=== PATIENT | male | born 1940 | race Caucasian/White ===

== ENCOUNTER 2022-02-26 12:05 | Inpatient (IN) | payer OTHER ==
[~2022-02-26] VITALS: Ht 172.7 cm; Wt 86.2 kg
[2022-02-26 12:05] VITALS: BP_SYST 125
[2022-02-26] MEDS ORDERED: OLAN5TAB71 PO (13:41)
[2022-02-26] MEDS ORDERED: IRBE300T40 PO (13:41)
[2022-02-26] MEDS ORDERED: ROSU20TA2 PO (13:41)
[2022-02-26] MEDS ORDERED: TAMS-11 PO (13:41)
[2022-02-26] MEDS ORDERED: NITR0.4T47 SL (13:41)
[2022-02-26] MEDS ORDERED: LACT10SO6 PO (13:41)
[2022-02-26] MEDS ORDERED: ASPI-1155 PO (13:41)
[2022-02-26 13:55] LABS: ANION GAP 5 (5-15); CALCIUM 8.6 mg/dL (8.4-11.0); CHLORIDE 103 mmol/L (98-107); CREATININE 1.01 mg/dL (0.55-1.30); GLUCOSE 137 mg/dL (70-99); UREA NITROGEN, BLOOD 9 mg/dL (8-21)
[2022-02-26 13:57] LABS: BILIRUBIN,URINE NEGATIVE (NEGATIVE); BLOOD, URINE 3+ (NEGATIVE); COLOR,URINE YELLOW (YELLOW); GLUCOSE,URINE TRACE (NEGATIVE); KETONES,URINE NEGATIVE (NEGATIVE); LEUKOCYTE ESTERASE ,URINE 3+ (NEGATIVE); NITRITE, URINE POSITIVE (NEGATIVE); PROTEIN URINE 2+ (NEGATIVE); UROBILINOGEN,URINE 0.2 (0.2-1.0)
[2022-02-26 14:00] LABS: CLARITY/URINE HAZY (CLEAR)
[2022-02-26 14:00] LABS: BASOPHILS % (AUTO) 0.5 % (0.0-2.0); EOSINOPHILS # (AUTO) 0.1 K/uL (0.0-0.4); EOSINOPHILS % (AUTO) 0.9 % (0.0-4.0); HEMATOCRIT 36.3 % (36-54); HEMOGLOBIN 12.2 g/dL (14.0-18.0); LYMPHOCYTES # (AUTO) 0.7 K/uL (1.0-5.5); LYMPHOCYTES % (AUTO) 9.3 % (20.5-51.5); MEAN CORPUSCULAR HEMOGLOBIN 28 pg (27-31); MEAN CORPUSCULAR HGB CONC 34 % (32-36); MEAN CORPUSCULAR VOLUME 83 fL (79.0-98.0); MONOCYTES # (AUTO) 0.4 K/uL (0.0-1.0); MONOCYTES % (AUTO) 4.5 % (1.7-9.3); NEUTROPHILS # (AUTO) 6.6 K/uL (1.8-7.7); NEUTROPHILS % (AUTO) 84.8 % (40.0-70.0); PLATELET COUNT (AUTO) 179 K/uL (130-430); RED BLOOD CELL COUNT(AUTO) 4.39 MIL/uL (4.2-6.2); RED CELL DISTRIBUTION WIDTH 13.9 % (9.0-15.0); WHITE BLOOD COUNT (AUTO) 7.8 K/uL (4.8-10.8)
[2022-02-26 14:09] LABS: BACTERIA,URINE MANY /HPF (None Seen); RBC,URINE 20-50 /HPF (0-3); WBC,URINE 50-80 /HPF (0-3)
[2022-02-26 14:10] LABS: YEAST,URINE Many /HPF (None Seen)
[2022-02-26 14:12] LABS: ALANINE AMINOTRANSFERASE 35 U/L (12-78); ASPARTATE AMINOTRANSFERASE 25 U/L (10-37); LIPASE 115 U/L (73-393); PHOSPHORUS 3.5 mg/dL (2.7-4.5); TOTAL BILIRUBIN 0.4 mg/dL (0.0-1.0)
[2022-02-26] MEDS ORDERED: cefTRIAXone 1 GM in D5W 50 ML IV ONE (14:30)
[2022-02-26] MEDS ORDERED: cefTRIAXone 1 GM VIAL ONE ×2 (14:44→14:45)
[2022-02-26 17:15] VITALS: BP_SYST 150
[2022-02-26 20:00] VITALS: BP_SYST 147
[2022-02-26] MEDS ORDERED: D5W 1,000 ML IV PRN (22:00)
[2022-02-26] MEDS ORDERED: INSULIN REGULAR, HUMAN 100 UNITS/ML, 3 ML VIAL (humuLIN R) SUBCUT PRN (22:00)
[2022-02-26] MEDS ORDERED: DEXTROSE 50% JECT 50 ML DISP.SYRIN IVP PRN (22:00)
[2022-02-26] MEDS ORDERED: GLUCOSE (DEXTROSE) ORAL GEL -Adults PO PRN (22:00)
[2022-02-27] VITALS: BP_SYST 145
[2022-02-27 06:22] LABS: BASOPHILS % (AUTO) 0.6 % (0.0-2.0); EOSINOPHILS # (AUTO) 0.1 K/uL (0.0-0.4); EOSINOPHILS % (AUTO) 2.4 % (0.0-4.0); HEMATOCRIT 34.1 % (36-54); HEMOGLOBIN 11.4 g/dL (14.0-18.0); LYMPHOCYTES # (AUTO) 1.2 K/uL (1.0-5.5); LYMPHOCYTES % (AUTO) 21.9 % (20.5-51.5); MEAN CORPUSCULAR HEMOGLOBIN 27 pg (27-31); MEAN CORPUSCULAR HGB CONC 33 % (32-36); MEAN CORPUSCULAR VOLUME 82 fL (79.0-98.0); MONOCYTES # (AUTO) 0.4 K/uL (0.0-1.0); MONOCYTES % (AUTO) 6.6 % (1.7-9.3); NEUTROPHILS # (AUTO) 3.7 K/uL (1.8-7.7); NEUTROPHILS % (AUTO) 68.5 % (40.0-70.0); PLATELET COUNT (AUTO) 187 K/uL (130-430); RED BLOOD CELL COUNT(AUTO) 4.16 MIL/uL (4.2-6.2); RED CELL DISTRIBUTION WIDTH 13.9 % (9.0-15.0); WHITE BLOOD COUNT (AUTO) 5.4 K/uL (4.8-10.8)
[2022-02-27 06:56] LABS: ALANINE AMINOTRANSFERASE 38 U/L (12-78); ALBUMIN 2.8 g/dL (3.4-4.8); ANION GAP 8 (5-15); ASPARTATE AMINOTRANSFERASE 27 U/L (10-37); CALCIUM 8.7 mg/dL (8.4-11.0); CHLORIDE 105 mmol/L (98-107); CREATININE 0.94 mg/dL (0.55-1.30); GLUCOSE 114 mg/dL (70-99); TOTAL BILIRUBIN 0.4 mg/dL (0.0-1.0); UREA NITROGEN, BLOOD 8 mg/dL (8-21)
[2022-02-27 07:53] VITALS: BP_SYST 141
[2022-02-27] MEDS: OLANZapine 5 MG TABLET PO SCH (08:41)
[2022-02-27] MEDS: ASPIRIN 81 MG TAB.CHEW PO SCH (08:41)
[2022-02-27] MEDS: LOSARTAN POTASSIUM 50 MG TABLET (COZAAR) PO SCH (08:41)
[2022-02-27] MEDS: TAMSULOSIN HCL 0.4 MG CAP PO SCH (08:41)
[2022-02-27] MEDS ORDERED: THEOPHYLLINE ANHYDROUS 200 MG TAB.SR.12H PO ONE (10:30)
[2022-02-27 12:00] VITALS: BP_SYST 140
[2022-02-27] MEDS: cefTRIAXone 1 GM IVPB PREMIX 50 ML IV SCH (15:22)
[2022-02-27 16:00] VITALS: BP_SYST 90
[2022-02-27 19:00] VITALS: BP_SYST 121
[2022-02-27 20:00] VITALS: BP_SYST 121
[2022-02-27] MEDS: THEOPHYLLINE ANHYDROUS 200 MG TAB.SR.12H PO SCH (22:21)
[2022-02-27] MEDS: ATORVASTATIN 20 MG TABLET PO SCH (22:24)
[2022-02-28] VITALS: BP_SYST 119
[2022-02-28 08:00] VITALS: BP_SYST 130
[2022-02-28] MEDS: ASPIRIN 81 MG TAB.CHEW PO SCH (10:07)
[2022-02-28] MEDS: TAMSULOSIN HCL 0.4 MG CAP PO SCH (10:07)
[2022-02-28] MEDS: OLANZapine 5 MG TABLET PO SCH (10:07)
[2022-02-28] MEDS: THEOPHYLLINE ANHYDROUS 200 MG TAB.SR.12H PO SCH ×2 (10:07→20:24)
[2022-02-28] MEDS: LOSARTAN POTASSIUM 50 MG TABLET (COZAAR) PO SCH (10:08)
[2022-02-28 12:00] VITALS: BP_SYST 103
[2022-02-28] MEDS: cefTRIAXone 1 GM IVPB PREMIX 50 ML IV SCH (14:29)
[2022-02-28 17:00] VITALS: BP_SYST 97
[2022-02-28 20:00] VITALS: BP_SYST 78
[2022-02-28] MEDS ORDERED: NACL 0.9% 1,000 ML IV ONE (20:15)
[2022-02-28] MEDS: ATORVASTATIN 20 MG TABLET PO SCH (20:23)
[2022-02-28 21:43] VITALS: BP_SYST 92
[2022-03-01] VITALS: BP_SYST 113
[2022-03-01 08:00] VITALS: BP_SYST 112
[2022-03-01] MEDS: LOSARTAN POTASSIUM 50 MG TABLET (COZAAR) PO SCH (10:38)
[2022-03-01] MEDS: OLANZapine 5 MG TABLET PO SCH (10:38)
[2022-03-01] MEDS: TAMSULOSIN HCL 0.4 MG CAP PO SCH (10:38)
[2022-03-01] MEDS: ASPIRIN 81 MG TAB.CHEW PO SCH (10:38)
[2022-03-01] MEDS: THEOPHYLLINE ANHYDROUS 200 MG TAB.SR.12H PO SCH (10:38)
[2022-03-01 12:00] VITALS: BP_SYST 112
[2022-03-01] MEDS ORDERED: LINE600T12 PO (13:16)
[2022-03-01] MEDS ORDERED: Theophylline Anhydrous PO (13:16)
[2022-03-01 14:54] VITALS: BP_SYST 112
== END 2022-03-01 15:45 | disposition home health service (06) | DRG 690 ==
LOC: SED 12:05 → STU 15:01
PROVIDERS: ADMIT Family Medicine; ATTEND Family Medicine
DX: N39.0 Urinary tract infection, site not specified (principal); R00.1 Bradycardia, unspecified; N13.8 Other obstructive and reflux uropathy; I25.10 Atherosclerotic heart disease of native coronary artery without angina pectoris; B95.62 Methicillin resistant Staphylococcus aureus infection as the cause of diseases classified elsewhere; E11.9 Type 2 diabetes mellitus without complications; I10 Essential (primary) hypertension; N40.1 Benign prostatic hyperplasia with lower urinary tract symptoms; Z87.891 Personal history of nicotine dependence; Z95.1 Presence of aortocoronary bypass graft; Z79.899 Other long term (current) drug therapy
CPT/HCPCS: 36415; 70450-TC; 70551; 71045; 76376; 80053; 81000; 82550; 82962; 83605; 83690; 83735; 84100; 84443; 84484; 85025; 87086; 87186-TC; 93005; 93306; 93880; 96365; 97116-GP; 99285; G0378; J0696; J1815; J7050